=== PATIENT | male | born 1990 | race Asian ===

== ENCOUNTER → 2017-01-07 | Outpatient (CLI) | payer OTHER ==
--- NOTE | 2017-01-07 14:37 | DIAGNOSTIC IMAGING REPORT ---
CT SCAN OF THE ABDOMEN AND PELVIS WITHOUT IV CONTRAST CLINICAL HISTORY: Urinary frequency. Pelvic pain. Microscopic hematuria. COMPARISON STUDY: No priors. TECHNIQUE: CT scan of the abdomen and pelvis is performed from the lung bases to the proximal femora. Images are reviewed in the axial, sagittal, and coronal planes. IV contrast was not administered for this examination. Automated dose control exposure was utilized. CT DOSE: 477.35 mGycm FINDINGS: Lung bases: The heart is normal in size and without pericardial effusion. There is a small fat-containing Bochdalek hernia at the right lung base. The lung bases are otherwise clear. Liver: The unenhanced liver is normal in size, contour, and attenuation. There is no intrahepatic biliary ductal dilatation. Gallbladder: Unremarkable. Spleen: Normal in size and attenuation. Pancreas: Unremarkable. Adrenal glands: Unremarkable. Kidneys: The unenhanced kidneys are normal in size and without hydronephrosis. There are no renal calculi identified. There is no evidence of contour deforming renal mass lesion. Abdominal vasculature: The abdominal aorta is normal in course and caliber. Bowel: The small bowel and colon are normal in course and caliber. The appendix is well-visualized and normal. Peritoneum: There is no intraperitoneal free air or abdominal ascites. There is a small fat-containing umbilical hernia. Lymphadenopathy: None. Pelvic viscera: The bladder, prostate, and seminal vesicles are normal as imaged. Skeletal structures: No lytic or blastic lesions are seen. IMPRESSION: 1. There are no acute infectious or inflammatory findings in the abdomen or pelvis. 2. There are no renal calculi identified as clinically queried. Electronically signed by: Maciel Gauthire M.D. 01/07/2017 2:36 PM Dictated Date/Time: 01/07/2017 2:33 PM
== END | disposition home or self-care (01) ==
LOC: C.CTS 14:10
PROVIDERS: ATTEND Pediatrics
DX: R31.29 Other microscopic hematuria (principal); Z87.448 Personal history of other diseases of urinary system